=== PATIENT | female | born 1955 | race Caucasian/White ===

== ENCOUNTER 2019-11-23 14:28 | Emergency (ER) | payer OTHER ==
[2019-11-23 15:57] LABS: Absolute Lymphocytes (CBC) 1.6 K/uL (0.7-4.9); Hematocrit 40.3 % (36.0-45.0); MPV 8.3 fL (7.6-11.3); RBC Red Blood Cell Count 4.14 M/uL (3.86-4.86)
[2019-11-23 16:13] LABS: Protime INR 0.95
[2019-11-23 16:19] LABS: ALT/SGPT 32 U/L (12-78); AST/SGOT 24 U/L (15-37); Albumin 4.2 g/dL (3.4-5.0); Alkaline Phosphatase 131 U/L (45-117); BUN Blood Urea Nitrogen 12 mg/dL (7-18); Bicarbonate 28 mmol/L (21-32); Bilirubin Direct < 0.1 mg/dL (0-0.2); Bilirubin Total 0.4 mg/dL (0.2-1.0); Glucose Level 102 mg/dL (74-106); Magnesium 2.5 mg/dL (1.8-2.4); NT PRO-BNP 106 pg/mL (<125); Potassium 3.6 mmol/L (3.5-5.1); Protein, Total 7.8 g/dL (6.4-8.2); Sodium Level 142 mmol/L (136-145); Troponin (Emerg Dept Use Only) < 0.02 ng/mL (0.0-0.045)
--- NOTE | 2019-11-23 16:47 | RAD REPORT ---
EXAM DESCRIPTION: RAD - Chest Single View - 11/23/2019 4:40 pm CLINICAL HISTORY: CHEST PAIN Chest pain. COMPARISON: CHEST SINGLE VIEW dated 06/13/2014; CHEST PA AND LAT 2 VIEW dated 12/10/2011 FINDINGS: Portable technique limits examination quality. The lungs are grossly clear. The heart is normal in size. No displaced fractures. IMPRESSION: No acute intrathoracic process suspected.
--- NOTE | 2019-11-23 16:53 | ER ---
Nurse's Notes [facility] Name: Lauren Thompson Age: 64 yrs Sex: Female : 1955 Arrival Date: 11/23/2019 Time: 14:34 Bed 15 Private MD: Diagnosis: Chest pain, unspecified;Viral infection, unspecified Presentation: 11/22 14:37 Chief complaint: Patient states: Chest pressure since Friday. + SOB with talking a lot. ll1 + sore throat. wants covid test and heart work-up. Diarrhea int. Sent by televisit doctor for eval. Coronavirus screen: Surgical mask placed on patient. Patient moved to private room, placed in contact and droplet isolation with eye protection until further assessment. Patient reports a cough. Patient denies shortness of breath or difficulty breathing. Patient reports a measured and/or subjective temperature greater than 100.4F. Patient denies travel on a cruise ship or to a country the [facility] currently lists as an affected area. Patient reports contact with known and/or suspected case of COVID-19. 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 Ebola Screen: Patient denies travel to an Ebola-affected area in the 21 days before illness onset. Initial Sepsis Screen: Does the patient meet any 2 criteria? No. Patient's initial sepsis screen is negative. Risk Assessment: Do you want to hurt yourself or someone else? Patient reports no desire to harm self or others. Onset of symptoms was November 18, 2019. 14:37 Acuity: MALIK 3 ll1 14:37 Method Of Arrival: Ambulatory ll1 15:15 Initial Sepsis Screen: Does the patient have a suspected source of infection? No. vc Patient's initial sepsis screen is negative. Historical: - Allergies: 14:43 Sulfa (Sulfonamide Antibiotics); ll1 - PMHx: 14:43 Diverticulitis; Irregular heart rate; Ovarian cyst; Hypertension; ll1 - PSHx: 14:43 sigmoidectomy; Hysterectomy; bladder lift; ll1 - Immunization history:: Flu vaccine is up to date. - Social history:: Smoking status: Patient denies any tobacco usage or history of. Patient uses alcohol, only on a social basis. Patient/guardian denies using street drugs, tobacco products. Screenin:15 Abuse screen: Denies threats or abuse. Nutritional screening: No deficits noted. vc Tuberculosis screening: No symptoms or risk factors identified. Fall Risk None identified. Assessment: 15:15 General: Appears in no apparent distress. comfortable, Behavior is calm, cooperative, vc appropriate for age. Pain: Complains of pain in right mastoid area, left mastoid area, anterior aspect of left upper chest and mid-sternal area Pain does not radiate. Quality of pain is described as "discomfort in chest" Pain began gradually. Neuro: Level of Consciousness is awake, alert, obeys commands, Oriented to person, place, time, situation, Appropriate for age. Cardiovascular: Reports nausea, vomiting, "chest discomfort" Patient's skin is warm and dry. Rhythm is irregular. Respiratory: Reports shortness of breath on exertion cough that is dry, Respiratory effort is even, unlabored, Respiratory pattern is regular, symmetrical. GI: Reports nausea, vomiting. : No signs and/or symptoms were reported regarding the genitourinary system. EENT: Reports "sore throat". Derm: Skin is intact, is healthy with good turgor, Skin temperature is warm. Musculoskeletal: Circulation, motion, and sensation intact. Range of motion: intact in all extremities. 16:15 Reassessment: Patient appears in no apparent distress at this time. Patient and/or vc family updated on plan of care and expected duration. Pain level reassessed. Patient is alert, oriented x 3, equal unlabored respirations, skin warm/dry/pink. 17:15 Reassessment: Patient appears in no apparent distress at this time. Patient and/or vc family updated on plan of care and expected duration. Pain level reassessed. Patient is alert, oriented x 3, equal unlabored respirations, skin warm/dry/pink. Patient states symptoms have not improved. Vital Signs: 14:37 BP 182 / 87; Pulse 85; Resp 18; Temp 98.6; Pulse Ox 98% ; Pain 5/10; ll1 16:00 BP 149 / 79; Pulse 75; Resp 12; Pulse Ox 97% on R/A; vc 17:00 BP 139 / 79; Pulse 75; Resp 20; Pulse Ox 100% on R/A; vc ED Course: 14:34 Patient arrived in ED. as 14:41 Triage completed. ll1 14:43 Arm band placed on Patient placed in an exam room, on a stretcher. ll1 14:44 Calcote, Wilma, RN is Primary Nurse. vc 15:05 Gutierrez Swanson PA is PHCP. jr8 15:05 Martinez Guo MD is Attending Physician. jr8 15:15 Patient has correct armband on for positive identification. Placed in gown. Bed in low vc position. Call light in reach. cardiac monitor technician on. Pulse ox on. NIBP on. 15:15 Inserted saline lock: 20 gauge in right antecubital area, using aseptic technique. vc Blood collected. Patient maintains SpO2 saturation greater than 95% on room air. 16:41 XRAY Chest (1 view) In Process Unspecified. EDMS 17:27 No provider procedures requiring assistance completed. IV discontinued, intact, vc bleeding controlled, No redness/swelling at site. Pressure dressing applied. Administered Medications: No medications were administered Outcome: 16:53 Discharge ordered by . jr8 17:27 Discharged to home ambulatory. vc 17:27 Condition: good 17:27 Discharge instructions given to patient, Instructed on discharge instructions, follow up and referral plans. Demonstrated understanding of instructions, follow-up care. 17:28 Patient left the ED. vc Addendum: 11/26/2019 11:54 Addendum: Other pt notified of negative COVID-19 swab results. Pt advised to remain in d m5 isolation until symptom free for 3 days without medication and to return to the ED for worsening symptoms. Signatures: Dispatcher [employer] EDAK Bryanna Correa RN RN Danica Khan Josh, PA PA jr8 Wilma Hutchinson RN RN vc Lewis, Lynsay, RN RN ll1
--- NOTE | 2019-11-23 16:54 | EDPHYS ---
Physician Documentation [facility] Name: Lauren Thompson Age: 64 yrs Sex: Female : 1955 Arrival Date: 11/23/2019 Time: 14:34 Bed 15 Private MD: ED Physician Martinez Guo HPI: 11/22 15:56 This 64 yrs old Female presents to ER via Ambulatory with complaints of Chest jr8 Pressure. 15:56 The patient or guardian reports chest pain that is located primarily in the substernal jr8 area. Onset: gradually, 5 day(s) ago. The pain radiates to Associated signs and symptoms: The patient has no apparent associated signs or symptoms. The chest pain is described as dull. Duration: The patient or guardian reports multiple episodes, that are intermittent, that wax and wane. Modifying factors: The symptoms are alleviated by nothing. the symptoms are aggravated by exertion. Severity of pain: At its worst the pain was moderate in the emergency department the pain is unchanged. The patient has not experienced similar symptoms in the past. The patient has been recently seen by a physician:. Patient stated that she has had chest pressure on/off for several days even at rest. Over the past couple of days not having body aches, chills, cough consistent with COVID symptoms. Had telemedicine health visit with PCP who instructed her to come to ED for further evaluation . Historical: - Allergies: 14:43 Sulfa (Sulfonamide Antibiotics); ll1 - PMHx: 14:43 Diverticulitis; Irregular heart rate; Ovarian cyst; Hypertension; ll1 - PSHx: 14:43 sigmoidectomy; Hysterectomy; bladder lift; ll1 - Immunization history:: Flu vaccine is up to date. - Social history:: Smoking status: Patient denies any tobacco usage or history of. Patient uses alcohol, only on a social basis. Patient/guardian denies using street drugs, tobacco products. ROS: 15:56 Eyes: Negative for injury, pain, redness, and discharge, ENT: Negative for injury, jr8 pain, and discharge, Neck: Negative for injury, pain, and swelling, Back: Negative for injury and pain, MS/Extremity: Negative for injury and deformity, Skin: Negative for injury, rash, and discoloration, Neuro: Negative for headache, weakness, numbness, tingling, and seizure. 15:56 Constitutional: Positive for body aches, chills, fever. 15:56 Cardiovascular: Positive for chest pain, Negative for edema, orthopnea, palpitations, paroxysmal nocturnal dyspnea. 15:56 Respiratory: Positive for cough. 15:56 Abdomen/GI: Positive for nausea, diarrhea, Negative for abdominal pain, constipation, abdominal cramps, abdominal distension. Exam: 15:56 Eyes: Pupils equal round and reactive to light, extra-ocular motions intact. Lids and jr8 lashes normal. Conjunctiva and sclera are non-icteric and not injected. Cornea within normal limits. Periorbital areas with no swelling, redness, or edema. ENT: Nares patent. No nasal discharge, no septal abnormalities noted. Tympanic membranes are normal and external auditory canals are clear. Oropharynx with no redness, swelling, or masses, exudates, or evidence of obstruction, uvula midline. Mucous membranes moist. Neck: Trachea midline, no thyromegaly or masses palpated, and no cervical lymphadenopathy. Supple, full range of motion without nuchal rigidity, or vertebral point tenderness. No Meningismus. Cardiovascular: Regular rate and rhythm with a normal S1 and S2. No gallops, murmurs, or rubs. Normal PMI, no JVD. No pulse deficits. Respiratory: Lungs have equal breath sounds bilaterally, clear to auscultation and percussion. No rales, rhonchi or wheezes noted. No increased work of breathing, no retractions or nasal flaring. Abdomen/GI: Soft, non-tender, with normal bowel sounds. No distension or tympany. No guarding or rebound. No evidence of tenderness throughout. Back: No spinal tenderness. No costovertebral tenderness. Full range of motion. Skin: Warm, dry with normal turgor. Normal color with no rashes, no lesions, and no evidence of cellulitis. MS/ Extremity: Pulses equal, no cyanosis. Neurovascular intact. Full, normal range of motion. Neuro: Awake and alert, GCS 15, oriented to person, place, time, and situation. Cranial nerves II-XII grossly intact. Motor strength 5/5 in all extremities. Sensory grossly intact. Cerebellar exam normal. Normal gait. Vital Signs: 14:37 BP 182 / 87; Pulse 85; Resp 18; Temp 98.6; Pulse Ox 98% ; Pain 5/10; ll1 16:00 BP 149 / 79; Pulse 75; Resp 12; Pulse Ox 97% on R/A; vc 17:00 BP 139 / 79; Pulse 75; Resp 20; Pulse Ox 100% on R/A; vc MDM: 15:05 Patient medically screened. 8 16:50 Differential diagnosis: acute myocardial infarction, acute pericarditis, chest wall jr8 pain, cholecystitis, Cholelithiasis costochondritis, esophagitis, gastritis, gastroesophageal reflux disease (GERD), myocarditis, pancreatitis, peptic ulcer disease, pneumonia, pulmonary embolus, stable angina, thoracic aortic disection, unstable angina. Data reviewed: vital signs, nurses notes, lab test result(s), EKG, radiologic studies, plain films. Data interpreted: Pulse oximetry: on room air is 97 %. Interpretation: normal. Counseling: I had a detailed discussion with the patient and/or guardian regarding: the historical points, exam findings, and any diagnostic results supporting the discharge/admit diagnosis, lab results, radiology results, the need for outpatient follow up, a family practitioner, to return to the emergency department if symptoms worsen or persist or if there are any questions or concerns that arise at home. 17:08 ED course: Patient has had on/off chest pain for 5 days. Cardiac enzyme normal. No jr8 acute findings on rest of labs or images. 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 Recommended this and to wait for COVID results in meantime. If worse to immediately come back for further evaluation . 11/22 15:15 Order name: Basic Metabolic Panel; Complete Time: 16:11/22 15:15 Order name: CBC with Diff; Complete Time: 16:11/22 15:15 Order name: LFT's; Complete Time: 16:11/22 15:15 Order name: Magnesium; Complete Time: 16:11/22 15:15 Order name: NT PRO-BNP; Complete Time: 16:11/22 15:15 Order name: PT-INR; Complete Time: 16:11/22 15:15 Order name: Troponin (emerg Dept Use Only); Complete Time: 16:11/22 15:15 Order name: XRAY Chest (1 view); Complete Time: 16:50 30 15:15 Order name: EKG; Complete Time: 15:16 8 11/22 15:15 Order name: Cardiac monitoring; Complete Time: 15:54 8 11/22 15:15 Order name: EKG - Nurse/Tech; Complete Time: 15:54 8 11/22 15:15 Order name: IV Saline Lock; Complete Time: 15:54 8 11/22 15:15 Order name: Labs collected and sent; Complete Time: 15:54 8 11/22 15:15 Order name: COVID-19 11/22 15:15 Order name: O2 Per Protocol; Complete Time: 15:54 8 11/22 15:15 Order name: O2 Sat Monitoring; Complete Time: :54 Administered Medications: No medications were administered Disposition: 11/23 06:07 Co-signature as Attending Physician, Martinez Guo MD I agree with the assessment and kdr plan of care. Disposition: 11/23/19 16:53 Discharged to Home. Impression: Chest pain, unspecified, Viral infection, unspecified. - Condition is Stable. - Discharge Instructions: Nonspecific Chest Pain, Viral Respiratory Infection, COVID-19. - Medication Reconciliation Form, Thank You Letter, Antibiotic Education, Prescription Opioid Use form. - Follow up: Private Physician; When: 2 - 3 days; Reason: Recheck today's complaints, Continuance of care, Re-evaluation by your physician. - Problem is new. - Symptoms have improved. Signatures: Dispatcher [employer] EDHI Martinez Guo MD MD kdr Roszak, Josh, PA PA jr8 Wilma Hutchinson RN RN Aby Shrestha RN RN ll1 Corrections: (The following items were deleted from the chart) 11/22 17:28 16:53 11/23/2019 16:53 Discharged to Home. Impression: Chest pain, unspecified; Viral vc infection, unspecified. Condition is Stable. Forms are Medication Reconciliation Form, Thank You Letter, Antibiotic Education, Prescription Opioid Use. Follow up: Private Physician; When: 2 - 3 days; Reason: Recheck today's complaints, Continuance of care, Re-evaluation by your physician. Problem is new. Symptoms have improved. jr8
[2019-11-23 17:55] VITALS: TEMP 98.6
--- OUTSIDE RECORDS SUMMARY | 2019-11-23 17:56 | XMS REPORT | Clinical Summary ---
:1955 Author Organization [facility] Address [address] [place] [address] Care Team Providers Name Role Phone Jodi Rendon DO Primary Care Provider [phone] Allergies Active Allergy Reactions Severity Noted Date Comments Doxycycline Hives 11/04/2018 Sulfa (Sulfonamide Antibiotics) Hives 9 Medications Medication Sig Dispensed Refills Start Date End Date Status buPROPion XL Take 150 mg by 0 Ac tive (WELLBUTRIN XL) mouth 2 (two) 150 MG 24 hr times a day. tablet ondansetron Take 4 mg by 0 Activ e (ZOFRAN) 4 MG mouth every 8 tablet (eight) hours as needed for nausea or vomiting. atenolol Take 25 mg by 0 Active (TENORMIN) 25 MG mouth daily. tablet diclofenac Apply 0 Active (VOLTAREN) 1 % topically as gel needed. promethazine Take 25 mg by 0 Act ary (PHENERGAN) 25 MG mouth every 6 tablet (six) hours as needed for nausea or vomiting. fenofibrate Take 160 mg by 0 Dis continued (LOFIBRA) 160 MG mouth daily. 9 (Stop Taking at tablet Discharge) estradiol Follow office 42.5 g 1 11/04/2018 Disco ntinued (ESTRACE) 0.01 % instruction. 9 (Discontinued by (0.1 mg/gram) Insert one anoth er vaginal finger tip clinician ) creamIndications: unit into Vaginal atrophy vagina nightly x 2wks; after two weeks use 3x weekly at night amoxicillin-pot Take 1 tablet 0 Discontinued clavulanate by mouth 2 9 (AUGMENTIN) (two) times a 875-125 mg per day. tablet diazePAM (VALIUM) Take 1 tablet 10 tablet 0 02/23/2019 5 MG (5 mg total) 9 tabletIndications by mouth : Muscle spasm nightly for 10 days. diazePAM (VALIUM) Insert one 30 tablet 0 04/15/2019 10 MG tablet into 9 tabletIndications vagina at : Myalgia of night pelvic floor Hospital, Clinic, or Other Ordered Dose Route Frequency Start Date End Date Status Facility Administered Medication triamcinolone acetonide 40 mg IM once 04/15/201904/15 Ended (KENALOG-40) injection 40 mgIndications: Myalgia of pelvic floor bupivacaine (MARCAINE) 0.5 10 mL inj once 04/15/2019 Ended % (5 mg/mL) injection 10 mLIndications: Myalgia of pelvic floor Active Problems Patient Care Coordination Note Dr. Rendon FAX: [phone] Problem Noted Date Uterine prolapse 02/02/2019 Diverticulitis 02/01/2019 Encounters Date Type Specialty Care Team Description 08/16/2019 Travel 08/16/2019 Transcribe Orders Access [place], Unspecifie d abdominal MD Loren pain (Primary D x) 04/15/2019 Office Visit Urogynecology Khai, Myalgia of pel lea floor (Primary Dx); Altagracia Zavaleta Incomplete nia dder emptying; Post-operative state 04/14/2019 Telephone Urogynecology Roger Loyd LVN 04/08/2019 Telephone Urogynecology Mike, Incomplete nia dder emptying (Primary Dx); DEAN Zamarripa Post-operative state 03/10/2019 Office Visit Urogynecologharrison Aranda, Post-operative state Altagracia Zavaleta (Primary Dx) 03/04/2019 Telephone Urogynecology Jojo Rose 03/02/2019 Telephone UrogynecologAltagracia Bullock MD 02/23/2019 Office Visit Urogynecologharrison Aranda, Muscle spasm ( Primary Altagracia Zavaleta, Dx) 02/21/2019 Telephone Urogynecologharrison Aranda, Postoperative state Altagracia Zavaleta (Primary Dx) 02/19/2019 Telephone UrogynecologAltagracia Bullock MD 2019 Hospital Radiology Samantha, Diverticulitis, colon Encounter MD Loren 02/16/2019 Transcribe Orders Access Samantha, Diverticul itis, colon MD Loren (Primary Dx) 02/09/2019 Telephone Urogynecology Karina Lott MD 02/05/2019 Orders Only Urogynecology Karina Lott Incomplete [place] rovaginal MD Delvin prolapse (Prima ry Dx) 02/01/2019 Anesthesia Event General Surgery Patrick Silvestre MD Nguyen, Jacob 02/01/2019 Surgery General Surgery Samantha, ROBOTIC ASSI MELL Pimentel MD ANTERIOR RESECT ION, TAP BLOCK, PROCTOSIGMOIDOS COPY 02/01/2019 [facility] General Surgery Samantha, Diverticulit is; - Encounter MD Loren Mixed incontine nce urge and stress; 02/05/2019 Cystocele with rectocele; Incomplete uter ovaginal prolapse 01/18/2019 Pre-Admit Testing Pre-Admission Shira Singhop exa mination Appointment Testing MD Loren (Primary Dx) 12/31/2018 Telephone Urogynecology Altagracia Aranda MD 12/17/2018 Telephone Obstetrics and Khai, Gynecology Altagracia Zavaleta MD 12/15/2018 Telephone UrogynecologAltagracia Bullock MD 12/10/2018 Telephone Urogynecology Altagracia Aranda MD 12/09/2018 Pre-Admit Testing Pre-Admission Altaf Aranda rowena ting (Primary Appointment Testing Adriana Raines) 12/09/2018 Office Visit Urogynecology Khai, Incomplete [place] pass rovaginal prolapse (Primary Dx); Altagracia Zavaleta, Genuine stress incontinence, female; Incomplete blad qing emptying; Diverticulitis of sigmoid colon 12/09/2018 Telephone Urogynecology Altagracia Aranda MD after 11/22/2018 Family History Medical History Relation Name Comments Heart disease Father Heart disease Mother Relation Name Status Comments Father Mother Alive Social History Tobacco Use Types Packs/Day Years Used Date Former Smoker Quit: 2007 Smokeless Tobacco: Never Used Alcohol Use Drinks/Week oz/Week Comments Yes 3 Glasses of wine 3.0 Sex Assigned at Date Recorded Not on file Job Start Date Occupation Industry Not on file Not on file Not on file Travel History Travel Start Travel End No recent travel history available. 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[employer] Pulse 72 04/15/2019 8:50 AM [employer] Temperature 36.6 C (97.8 F) 02/05/2019 3:22 PM CDT Respiratory Rate 17 02/05/2019 3:22 PM CDT Oxygen Saturation 95% 02/05/2019 3:22 PM CDT Inhaled Oxygen Concentration - - Weight 73.9 kg (163 lb) 04/15/2019 8:50 AM [employer] Height 162.6 cm (5' 4") 04/15/2019 8:50 AM [employer] Body Mass Index 27.98 04/15/2019 8:50 AM [employer] Plan of Treatment Health Maintenance Due Date Last Done Comments BREAST CANCER SCREENING 2003 COLONOSCOPY SCREENING 2003 SHINGLES VACCINES (#2) 05/03/2013 03/03/2013 65+ PNEUMOCOCCAL VACCINE (2 of 2 - 2018 03/11/2019 PPSV23) INFLUENZA VACCINE 12/25/2019 03/11/2019, 01/03/2019, 04/03/2018, Additional history exists Implants Implanted Type Area Engagement Engineer Device Shelf Model / Identifier Expiration Serial / Date Lot Eea Circular Stapler With Tri- Staple Technolgy Stapling - N/A: [employer] 06/25/2023 [id number] / Implanted: Qty: 1 on 02/01/2019 by Loren Singh M D at [facility] Endo cutters, N/A DEVICES / staplers, (FORMERLY [id number] reloads [facility]) Kit Selnt Fibrin [facility] Surgy 5ml Evicel - [id number] Surgic al N/A: ETHICON - 09/22/2020 [id number] / Implanted: 02/01/2019 at [facility] (Quantity not on file) Implants; N/A / Expanders; [id number] Extenders; Surgical Wires System Sling Mdurethrl Trnsvagnl Mesh Asmbly Advantage Fit - [id number] Urological N/A: BSC 12/07/2021 [id number] / Implanted: Qty: 1 on 02/01/2019 by Loren Singh M D at [facility] Implants or N/A UROLOGY/GYNECOL / Sets [id number] Procedures Procedure Name Priority Date/Time Associated Diagnosis Comme nts POC URINALYSIS DIPSTICK Routine 04/15/2019 10:12 Incomplete bl adder Results for this AM [employer]ATOR 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 MEASURE POST VOID Routine 04/15/2019 Incomplete bladder Resu lts for this RESIDUAL emptying procedure are i n the results section. URINE CULTURE Routine 04/08/2019 1:55 Incomplete bladder Resu lts for this PM [employer] OPER[employer] emptying procedure are in Post-operative state the res ults section. POC URINALYSIS DIPSTICK Routine 03/10/2019 3:16 Post-operativ e state Results for this PM CDT procedure are i n the results section. MEASURE POST VOID Routine 03/10/2019 Post-operative state Re sults for this RESIDUAL procedure are i n the results section. CREATININE LEVEL Routine 02/22/2019 3:29 Postoperative state Results for this PM CDT procedure are i n the results section. CT ABDOMEN PELVIS WO Routine 2019 5:05 Diverticulitis, Results for this CONTRAST PM CDT colon procedure are i n the results section. BASIC METABOLIC PANEL Routine 02/11/2019 10:29 Incomplete Re sults for this AM CDT uterovaginal procedure are i n prolapse the results section. ESTIMATED GFR STAT 02/05/2019 11:49 Results fo r this AM CDT procedure are i n the results section. CREATININE LEVEL STAT 02/05/2019 11:49 Results for this AM CDT procedure are i n the results section. CBC HEMOGRAM Routine 02/05/2019 4:35 Results for this AM CDT procedure are i n the results section. ESTIMATED GFR Routine 02/05/2019 4:00 Results fo r this AM CDT procedure are i n the results section. BASIC METABOLIC PANEL Routine 02/05/2019 4:00 Re sults for this AM CDT procedure are i n the results section. ESTIMATED GFR STAT 02/04/2019 2:03 Results fo r this PM CDT procedure are i n the results section. BASIC METABOLIC PANEL STAT 02/04/2019 2:03 Re sults for this PM CDT procedure are i n the results section. CBC HEMOGRAM Routine 02/04/2019 4:23 Results for this AM CDT procedure are i n the results section. ESTIMATED GFR Routine 02/04/2019 4:00 Results fo r this AM CDT procedure are i n the results section. BASIC METABOLIC PANEL Routine 02/04/2019 4:00 Re sults for this AM CDT procedure are i n the results section. ESTIMATED GFR Routine 02/03/2019 1:00 Results fo r this PM CDT procedure are i n the results section. BASIC METABOLIC PANEL Routine 02/03/2019 1:00 Re sults for this PM CDT procedure are i n the results section. US RENAL STAT 02/03/2019 8:45 Results for this AM CDT procedure are i n the results section. ESTIMATED GFR Routine 02/03/2019 4:00 Results fo r this AM CDT procedure are i n the results section. BASIC METABOLIC PANEL Routine 02/03/2019 4:00 Re sults for this AM CDT procedure are i n the results section. HC COMPLETE BLD COUNT Routine 02/03/2019 3:54 Re sults for this W/AUTO DIFF AM CDT procedure are i n the results section. POC GLUCOSE Routine 02/02/2019 4:54 Results for this PM CDT procedure are i n the results section. ESTIMATED GFR Routine 02/02/2019 5:26 Results fo r this AM CDT procedure are i n the results section. PHOSPHORUS LEVEL Routine 02/02/2019 5:26 Results for this AM CDT procedure are i n the results section. MAGNESIUM LEVEL Routine 02/02/2019 5:26 Results for this AM CDT procedure are i n the results section. BASIC METABOLIC PANEL Routine 02/02/2019 5:26 Re sults for this AM CDT procedure are i n the results section. HC COMPLETE BLD COUNT Routine 02/02/2019 5:26 Re sults for this W/AUTO DIFF AM CDT procedure are i n the results section. SURGICAL PATHOLOGY Routine 02/01/2019 3:37 Resul ts for this REQUEST PM CDT procedure are i n the results section. TN AN ELECTIVE Routine 02/01/2019 8:59 Results f or this ENDOTRACHEAL AIRWAY AM CDT procedur e are in the results section. COLPORRHAPHY, COMBINED 02/01/2019 7:38 Divertic ulitis ANTEROPOSTERIOR AM CDT Mixed incontinence urge and stress Cystocele with rectocele Incomplete uterovaginal prolapse Case Notes CRIS LATIF, DR SAMANTHA MARIO FIRST, EST 4 HRS, DR ARANDA WORKING SECOND, EST 3 HRS., STAFF/EQUIP COMING FROM DN 6 OR, [place] [address] @ 1510 01/27 MED Special Needs CRIS LATIF, DR SAMANTHA MARIO FIRST, EST 4 HRS, DR ARANDA WORKING SECOND, EST 4 HRS., STAFF/EQUIP COMING FROM DN 6 OR RESECTION, COLON, 02/01/2019 7:38 AM Diverticul itis LAPAROSCOPIC, CDT Mixed incontinence urge and ROBOT-ASSISTED stress Cystocele with r ectocele Incomplete uterovaginal prol apse Case Notes CRIS LATIF, DR SAMANTHA MARIO FIRST, EST 4 HRS, DR ARANDA WORKING SECOND, EST 3 HRS., STAFF/EQUIP COMING FROM DN 6 OR, [place] [address] @ 1510 01/27 MED Special Needs CRIS LATIF, DR SAMANTHA MARIO FIRST, EST 4 HRS, DR ARANDA WORKING SECOND, EST 4 HRS., STAFF/EQUIP COMING FROM DN 6 OR GRAM STAIN Routine 01/18/2019 1:37 Results for this PM CDT procedure are i n the results section. URINE CULTURE Routine 01/18/2019 1:37 Results fo r this PM CDT procedure are i n the results section. URINALYSIS SCREEN AND Routine 01/18/2019 10:34 Preop examinati on Results for this MICROSCOPY, WITH REFLEX AM CDT proc edure are in TO CULTURE the results section. ESTIMATED GFR Routine 01/18/2019 10:33 Results fo r this AM CDT procedure are i n the results section. COMPREHENSIVE METABOLIC Routine 01/18/2019 10:33 Preop examina tion Results for this PANEL AM CDT procedure are i n the results section. PROTHROMBIN TIME WITH Routine 01/18/2019 10:33 Preop examinati on Results for this INR AM CDT procedure are i n the results section. PARTIAL THROMBOPLASTIN Routine 01/18/2019 10:33 Preop examinat ion Results for this TIME (PTT) AM CDT procedure are i n the results section. TYPE AND SCREEN Routine 01/18/2019 10:33 Preop examination Res ults for this AM CDT procedure are i n the results section. CBC HEMOGRAM Routine 01/18/2019 10:33 Preop examination Result s for this AM CDT procedure are i n the results section. ECG PRE/POST OP Routine 12/09/2018 2:57 Preop testing Results for this PM CDT procedure are i n the results section. TYPE AND SCREEN Routine 12/09/2018 2:42 Preop testing Results for this PM CDT procedure are i n the results section. POC URINALYSIS DIPSTICK Routine 12/09/2018 11:37 Genuine stres s Results for this AM CDT incontinence, procedure are in female the results Incomplete bladder section. 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 Pathologist Sig nature Color urine, POC Yellow Clarity urine, POC Clear Glucose urine, POC Negative Negative Bilirubin urine, POC Negative Negative Ketones urine, POC Negative Negative Specific gravity urine, 1.020 1.005 - 1.030 POC Blood urine, POC Negative Negative pH urine, POC 6.0 5.0, 5.5, 6.0, 6.5, 7.0, 7.5, 8.0, 8.5 Protein urine, POC Negative Negative Urobilinogen urine, POC <2.0 <2.0 Nitrite urine, POC Negative Negative Leukocyte esterase Negative Negative urine, POC Specimen Urine Measure post void residual (04/15/2019)Only the most recent of2 resultswithin the time period is included. Pathologist Sig nature Total volume, urine 0ml Specimen Urine culture (04/08/2019 1:55 PM EVAPORATOR OPERATOR MOLASSES)Only the most recent of2 resultswithin the time period is included. Pathologist Sig nature Urine culture No growth [facility] Specimen Urine - Urine, clean catch Narrative Performed At Performed at: [facility] - [facility] [id number] [address] Lathe Tender: Hardy Knowles MD, Phone: [phone] Performing Organization Address City/State/Zipcode Phone Number [facility] Creatinine level (02/22/2019 3:29 PM CDT)Only the most recent of2 resultswithin the time period is included. Pathologist Sig nature Creatinine 0.97 0.57 - 1.00 mg/dL [facility] EGFR Non-Afr. Georgian 61 >59 mL/min/1.73 [facility] EGFR 70 >59 mL/min/1.73 [facility] Specimen Blood Narrative Performed At Performed at: [facility] [address] [place], [place] [address] [address] Lathe Tender: Hardy Knowles MD, Phone: [phone] Performing Organization Address City/State/Zipcode Phone Number [facility] CT Abdomen Pelvis Wo Contrast (2019 5:05 PM CDT) Specimen Narrative Performed At EXAMINATION: CT ABDOMEN PELVIS WO CONT RAST [facility] CLINICAL HISTORY: K57.32 Diverticulitis of large int estine without perforation or abscess without bleeding, K57.32 DIVERTICULITIS TECHNIQUE: Multiple axial images of the abdomen and pe lvis were obtained without intravenous administration of iodinated contra st. Sagittal and coronal computerized reformatted images were also obta ined. The lack of intravenous contrast reduces the sensitivity of detecting solid organ disease.Automatic exposure control or iterative reconstruction techniques u sed to reduce dose. COMPARISON: None. Impression: 1.Without IV contrast evaluation of solid organs of up per abdomen is limited. There is evidence for left-sided hydronephros is and hydroureter although the very distal left ureter is not well seen. No clear distal stones are seen. No right-sided stones are seen. 2.Extensive diverticulosis throughout the colon. Patie nt is status post prior sigmoid resection. No acute diverticulitis is no kwaku. No small bowel obstruction. Status post hysterectomy. No fluid collections or free air. Osseous structures are intact. Summary: 1.Left-sided hydronephrosis and hydroureter, etiology is unclear. Obstruction at the left distal ureter cannot be exclud ed. Urology consultation recommended. 2.Colonic diverticulosis, without divert iculitis. [id number] Procedure Note Hm Interface, Radiology Results Incoming - 2019 5:31 PM CDT EXAMINATION: CT ABDOMEN PELVIS WO CONTRAST CLINICAL HISTORY: K57.32 Diverticulitis of large intestine without perforation or abscess without bleeding, K57.32 DIVERTICULITIS TECHNIQUE: Multiple axial images of the abdomen and pelvis were obtained without intravenous administration of iodinated contrast. Sagittal and coronal computerized reformatted images were also obtained. The lack of intravenous contrast reduces the sensitivity of detecting solid organ dis ease.Automatic exposure control or iterative reconstruction techniques used to reduce dose. COMPARISON: None. Impression: 1.Without IV contrast evaluation of brandee d organs of upper abdomen is limited. There is evidence for left-sided hydronephrosis and hydroureter although the very distal left ureter is not well seen. No clear distal stones are seen. No right-sided stones are seen. 2.Extensive diverticulosis throughout th e colon. Patient is status post prior sigmoid resection. No acute diverticulitis is noted. No small bowel obstruction. Status post hysterectomy. No fluid collections or free air. Osseous structures are intact. Summary: 1.Left-sided hydronephrosis and hydroure ter, etiology is unclear. Obstruction at the left distal ureter cannot be excluded. Urology consultation recommended. 2.Colonic diverticulosis, without divert iculitis. [id number] Performing Organization Address [facility] Phone Number [facility] [address] [place] [address] Basic metabolic panel (02/11/2019 10:29 AM CDT)Only the most recent of7 results within the time period is included. Pathologist Sig nature Glucose 152 (H) 65 - 99 mg/dL [facility] BUN 17 8 - 27 mg/dL [facility] Creatinine 1.22 (H) 0.57 - 1.00 mg/dL [facility] EGFR Non-Afr. Georgian 47 (L) >59 mL/min/1.73 [facility] EGFR 54 (L) >59 mL/min/1.73 [facility] BUN/creatinine ratio 14 12 - 28 [facility] Sodium 140 134 - 144 mmol/L [facility] Potassium 4.4 3.5 - 5.2 mmol/L [facility] Chloride 98 96 - 106 mmol/L [facility] CO2 25 20 - 29 mmol/L [facility] Calcium 9.4 8.7 - 10.3 mg/dL [facility] Specimen Blood Narrative Performed At Performed at: [facility] - [facility] [address] [place], [place] [address] [address] Lathe Tender: Hardy Knowles MD, Phone: [phone] Performing Organization Address [facility] Phone Number [facility] Estimated GFR (02/05/2019 11:49 AM CDT)Only the most recent of8 resultswithin the time period is included. Estimated GFR 46 (A) mL/min/1.73 [facility] Comment: m2 HOSPITAL Catergory Units Interpretation G1 >=90 Normal or high G2 60-89 Mildly decreased G3a 45-59 Mildly to moderately decreas ed G3b 30-44 Moderately to severely decre ased G4 15-29 Severely decreased G5 <15 Kidney failure The eGFR was calculated using the Chronic Kidney Disea se Epidemiology Collaboration (CKD-EPI) equation. Interpretation is based on recommendations of the National Kidney Foundation-Kidney Disease Outcomes Edy lity Initiative (NKF-KDOQI) published in 2014. Specimen Plasma specimen Performing Organization Address City/State/Zipcode Phone Number [facility] DEPARTMENT OF PATHOLOGY AND [address] [place] [address] [address] CBC hemogram (02/05/2019 4:35 AM CDT)Only the most recent of3 resultswithin the time period is included. Pathologist Sig nature WBC 5.69 4.50 - 11.00 k/uL [facility] RBC 2.61 (L) 4.20 - 5.50 m/uL [facility] HGB 8.5 (L) 12.0 - 16.0 g/dL [facility] HCT 26.3 (L) 37.0 - 47.0 % [facility] MCV 100.8 (H) 82.0 - 100.[address] [facility] MCH 32.6 27.0 - 34.[address] [facility] MCHC 32.3 31.0 - 37.0 g/dL [facility] RDW - SD 46.1 37.0 - 55.[address] [facility] MPV 10.4 8.8 - 13.[address] [facility] Platelet count 181 150 - 400 k/uL [facility] Nucleated RBC 0.00 /[address] [facility] Specimen Blood Performing Organization Address City/[facility]/Zipcode Phone Number [facility] DEPARTMENT OF PATHOLOGY AND [address] [place] [address] [address] [address] [place] Renal (02/03/2019 8:45 AM CDT) Specimen Narrative Performed At [facility]AMINATION: [facility] CLINICAL [facility]: Renal failure acute (kidney inju ry), S p uterosacral ligament suspension now with new onset f lank pain and MATTHEW. Please preform bilateral renal us to evaluate for hydr onephrosis given recent surgery and MATTHEW. COMPARISON: None. TECHNIQUE: Ultrasound evaluation of th e kidneys and bladder. FINDINGS: The right kidney measures 10.7 x 5.2 x 6.6 cm. The l eft kidney measures 11.8 x 6.2 x 4.9 cm. Renal ted ical echogenicity is normal. No focal abnormality, calculi, or hydron ephrosis. The urinary bladder is not identified an d may be collapsed. IMPRESSION: Normal renal ultrasound. [facility]-[id number] Procedure Note Interface, Radiology Results Incoming - 02/03/2019 9:05 AM CDT EXAMINATION: US RENAL CLINICAL HISTORY: Renal failure acute (kidney injury), S p uterosacral ligament suspension now with new onset flank pain and MATTHEW. Please preform bilateral renal us to evaluate for hydronephrosis given recent surgery and MATTHEW. COMPARISON: None. TECHNIQUE: Ultrasound evaluation of the kidneys and bladder. FINDINGS: The right kidney measures 10.7 x 5.2 x 6 .6 cm. The left kidney measures 11.8 x 6.2 x 4.9 cm. Renal cortical echogenicity is normal. No focal abnormality, calculi, or hydron ephrosis. The urinary bladder is not identified an d may be collapsed. IMPRESSION: Normal renal ultrasound. [facility]-[id number] Performing Organization Address City/State/Zipcode Phone Number [facility] [address] [place] [address] CBC with platelet and differential (02/03/2019 3:54 AM CDT)Only the most recent of2 resultswithin the time period is included. WBC 12.29 (H) 4.50 - 11.00 [facility] RBC 3.27 (L) 4.20 - 5.50 [facility] HGB 10.9 (L) 12.0 - 16.0 [facility] g/dL [facility] HCT 33.0 (L) 37.0 - 47.0 % [facility] MCV 100.9 (H) 82.0 - 100.0 [facility] MCH 33.3 27.0 - 34.[address] [facility] MCHC 33.0 31.0 - 37.0 [facility] g/dL [facility] RDW - SD 45.4 37.0 - 55.[address] [facility] MPV 10.5 8.8 - 13.[address] [facility] Platelet count 252 150 - 400 k/uL [facility] Nucleated RBC 0.00 /[address] [facility] Neutrophils 76.5 (H) 39.0 - 69.0 % [facility] Lymphocytes 14.7 (L) 25.0 - 45.0 % [facility] Monocytes 8.2 0.0 - 10.0 % [facility] Eosinophils 0.1 0.0 - 5.0 % [facility] Basophils 0.2 0.0 - 1.0 % [facility] Immature granulocytes 0.3Comment: 0.0 - 1.0 % [facility] "[facility] granulocytes" (promyelocytes , myelocytes, metamyelocytes ) Specimen Blood Performing Organization Address [facility] Phone Number [facility] DEPARTMENT OF PATHOLOGY AND [address] [place] [address] [place] [id number] POC glucose (02/02/2019 4:54 PM CDT) Pathologist Sig [facility] POC glucose 115 (H) 65 - 99 mg/dL [facility] Comment: [facility] Notified RN Meter ID: [id number] Sales And Marketing Agent: Angeles Voss Specimen Performing Organization Address [facility] Phone Number [facility] AND [address] [place] [address] [phone] [address] Phosphorus level (02/02/2019 5:26 AM CDT) Pathologist Sig nature Phosphorus 2.8 2.4 - 4.5 mg/dL [facility] L Specimen Plasma specimen Performing Organization Address [facility] Phone Number [facility] AND [address] [place] [address] [phone] [address] Magnesium level (02/02/2019 5:26 AM CDT) Pathologist Sig nature Magnesium 1.9 1.6 - 2.4 mg/dL [facility] L Specimen Plasma specimen Performing Organization Address City/State/Zipcode Phone Number [facility] DEPARTMENT OF PATHOLOGY AND [address] [place], [place] [phone] GENOMIC MEDICINE [facility] [address] [place] [address] Surgical pathology request (02/01/2019 3:37 PM CDT) [facility] PATHOLOGY AND GENOMIC MEDICINE Surgical pathology See link below [facility] DE[facility] OF report for PDF Lab PATHOLOGY AND Report GENOMIC MEDICINE Result status This is Final [facility] OF Report for PATHOLOGY AND [id number] GENOMIC MEDICINE Specimen Performing Organization Address City/[facility] Phone Number [facility] OF PATHOLOGY AND [address] [place] [phone] GENOMIC MEDICINE Airway (02/01/2019 8:59 AM CDT) Narrative Performed At Lisa Mota CRNA 02/01/2019 9:00 AM Airway Date/Time: 02/01/2019 7:46 AM Performed by: Lisa Mota CRNA Authorized by: Patrick Silvestre MD Location: OR Urgency: Elective Difficult Airway: No Resident/MACHINE BOOKKEEPER/AA: Lisa Mota CRNA Performed by: resident/ANDREW/AA Preoxygenated with 100% O2: Yes Mask Ventilation: Easy mask Final Airway Type: Endotracheal airway Final Endotracheal Airway: ETT Cuffed: Yes Technique Used: Direct laryngoscopy Devices/Methods Used in Placement: Int ubating stylet Insertion Site: Oral Blade Type: Joy Laryngoscope Blade/Videolaryngoscope Nia de Size: 2 ETT Size (mm): 7.0 Cuff at minimum occlusion pressure: Yes Measured from: Lips ETT to Lips (cm): 21 Placement Verified by: CO2 detection, di rect visualization and equal breath sounds Laryngoscopic view: Grade I - full vie w of glottis Rapid Sequence Induction (RSI): No Modified RSI: No Number of Attempts at Approach: 1 Eyes taped immediately after LOC. Atraumatic DL/Intub ation. No apparent change to oropharynx/dentition/lips Gram stain (01/18/2019 1:37 PM CDT) Gram stain result No WBC's or organisms seen. [facility] Comment: HOSPITAL Specimen Information Specimen Source: Urine Specimen Site: Clean catch Specimen Urine Performing Organization Address City/[facility]/Zipcode Phone Number [facility] OF [facility]OLOG[facility] AND [address] [place] [address] [phone] [address] Urinalysis screen and microscopy, with reflex to culture (01/18/2019 10:34 AM CDT) Specimen site Clean catch [facility] Color, UA Yellow [facility] Appearance, UA Clear [facility] Specific gravity, UA 1.019 1.001 - 1.[address] [facility] pH, UA 5.0 5.0 - 8.5 [facility] Protein, UA Negative Negative [facility] Glucose, UA Negative Negative [facility] Ketones, UA Negative Negative [facility] Bilirubin, UA Negative Negative [facility] Blood, UA Negative Negative [facility] Nitrite, UA Negative Negative [facility] Urobilinogen, UA <2.0 <2.[address] [facility] Leukocyte esterase, Trace (A) Negative [facility] Epithelial cells, UA 1 /HPF [facility] WBC, UA 1 0 - 4 /HPF [facility] RBC, UA 1 0 - 5 /HPF [facility] Bacteria, UA Few None seen [facility] Yeast, UA None seen [facility] Yeast with None seen [facility] pseudohyphae, UA HOSPITAL Specimen Urine Performing Organization Address [facility] Phone Number [facility]OLOGY AND [address] [place] [address] [phone] [address] Partial thromboplastin time, activated (01/18/2019 10:33 AM CDT) PTT 34.4 23.0 - 36.0 [facility] Comment: [facility] HOSPITAL PTT therapeutic range for unfractionated heparin is 61.0-112.0 seconds which corresponds to Anti-Xa 0.3-0.7 U/ml. Specimen Blood Performing Organization Address City/[facility]/Zipcode Phone Number [facility] OF PATHOLOGY AND [address] [place] [address] [phone] [address] Prothrombin time with INR (01/18/2019 10:33 AM CDT) Prothrombin time 13.1 11.5 - 14.5 [facility] INR 1.0 [place] Comment: [facility] International Normalized Ratio (INR) is a [facility] monitoring tool for patients who are stable on oral anticoagulant therapy. An INR of 2.0-3.0 is suggested for deep vein thrombosis/pulmonary embolism. Specimen Blood Performing Organization Address City/[facility]/[place] Phone Number [facility]OLOGY AND [address] [place] [address] [phone] [address] Type and screen (01/18/2019 10:33 AM CDT)Only the most recent of2 resultswithin the time period is included. Pathologist Sig nature ABO grouping O [facility] Rh type POS [facility] Antibody screen (gel) NEG [facility] Specimen Blood Performing Organization Address [facility] Phone Number [facility] OF PATHOLOGY AND [address] [place] [address] [phone] [address] Comprehensive metabolic panel (01/18/2019 10:33 AM CDT) Pathologist [facility] Sodium 141 135 - 148 [facility] mEq/L [facility] Potassium 4.1 3.5 - 5.0 [facility] mEq/L [facility] Chloride 103 98 - 112 [facility] mEq/L [facility] CO2 23 (L) 24 - 31 mEq/L [facility] Anion gap 15@ANIO 7 - 15 mEq/L [facility] BUN 14 8 - 23 mg/dL [facility] Creatinine 0.93 (H) 0.50 - 0.90 [facility] mg/dL [facility] Glucose 85 65 - 99 mg/dL [facility] Calcium 9.1 8.8 - 10.2 [facility] mg/dL [facility] Protein 7.6 6.3 - 8.3 [facility] Comment: g/dL HOSPITAL [place] 4.6-7.0 g/dL 1 week 4.4-7.6 g/dL 7 months-1year 5.1-7.3 g/dL 1-2 years 5.6-7.5 g/dL >3 years 6.0-8.0 g/dL 18-150 6.3-8.3 g/dL Albumin 3.9 3.5 - 5.0 [facility] g/dL HOSPITAL A/G ratio 1.1 0.7 - 3.[address] [facility] Alkaline phosphatase 69 35 - 104 U/L [facility] AST 17 10 - 35 U/L [facility] ALT 20 5 - 50 U/L [facility] Total bilirubin 0.3 0.0 - 1.2 [facility] mg/dL HOSPITAL Specimen Plasma specimen Performing Organization Address City/State/[place] Phone Number [facility] OF PATHOLOGY AND [address] [place], [place] [phone] [facility] [address] [place] [address] ECG Pre/Post Op (12/09/2018 2:57 PM CDT) Pathologist Sig nature Ventricular rate 81 [facility] Atrial rate 81 [facility] TN interval 154 [facility] QRSD interval 118 [facility] QT interval 396 [facility] QTC interval 460 [facility] P axis 1 61 [facility] QRS axis 1 66 [facility] T wave axis 12 [facility] EKG impression Normal sinus [facility] M[facility] rhythm-RSR' or QR pattern in V1 suggests right ventricular conduction delay-Nonspecific T wave abnormality-Abnormal ECG-No previous ECGs available-Electronicall y Signed By Higinio Johnston MD ([id number]) on 12/10/2018 9:43:20 PM Specimen Narrative Performed At This result has an attachment that is no t available. Performing Organization Address City/[facility]/[place] Phone Number [facility] [address] [place] [address] after 11/22/2018 Insurance Payer Benefit Plan / Subscriber ID Effective Dates Phone Addre ss Type Group MEDICARE MEDICARE PART A xxxxxxxxxxx 2018-Present [facility] [place] CIGNA CIGNA OPEN xxxxxxxxxxx 2011-Present HMO ACCESS/NETWORK Advance Directives For more information, please contact: [phone] Type Date Recorded Patient Car Top Bolter Explanati on Advance Directives, Living Will and Medical Power of Car Dropper
--- OUTSIDE RECORDS SUMMARY | 2019-11-23 17:56 | XMS REPORT | Clinical Summary ---
:1955 Author Organization [facility] Address [address] [place] [address] Care Team Providers Name Role Phone Nancy Primary Care Provider Unavailable Allergies Active Allergy Reactions Severity Noted Date Comments Sulfa (Sulfonamide Antibiotics) High 5 Medications Medication Sig Dispensed Refills Start Date End Date Status promethazine Take 25 mg by 0 Act ary (PHENERGAN) 25 MG mouth every 6 tablet (six) hours as needed for Nausea. buPROPion (WELLBUTRIN Take 150 mg by 0 Active SR) 150 MG 12 hr mouth daily . tablet fenofibrate Take 160 mg by 0 Act ary (TRIGLIDE,LOFIBRA) 160 mouth daily. MG tablet atenolol (TENORMIN) 25 Take 1 tablet 30 tablet 11 11/09/2018 MG tablet (25 mg total) by mouth daily. Active Problems Problem Noted Date Diverticulitis 11/06/2018 Chest pain -- with NORMAL CORONARY ARTERIES -- heart c ath -- 07/01/2014 06/29/2014 Heart palpitations -- metoprolol Rx 06/29/2014 Pure hypercholesterolemia 06/29/2014 Obesity 06/29/2014 Family History Medical History Relation Name Comments Heart disease Father Heart disease Mother Relation Name Status Comments Father Mother Social History Tobacco Use Types Packs/Day Years Used Date Never Smoker Smokeless Tobacco: Never Used Alcohol Use Drinks/Week oz/Week Comments Yes Sex Assigned at Date Recorded Not on file Job Start Date Occupation Industry Not on file Not on file Not on file Travel History Travel Start Travel End No recent travel history available. Last Filed Vital Signs Not on file Plan of Treatment Not on file Results Not on fileafter 11/22/2018 Insurance Payer Benefit Plan / Group Subscriber ID Type Phone A ddress MEDICARE MEDICARE PART A xxxxxxxxxxx Medicare CIGNA - MGD CARE CIGNA HMO/POS/OPEN ACCESS xxxxxxxxxxx HMO/POS Advance Directives For more information, please contact:[facility] [place], [place] [phone] Code Status Date Activated Date Inactivated Comments Full Code 11/06/2018 5:29 AM 11/09/2018 2:26 PM This code status was determined by: Patient Full Code 07/01/2014 10:35 AM 07/01/2014 6:38 PM This code status was determined by: Patient Full Code 07/01/2014 6:12 AM 07/01/2014 10:35 AM This code status was determined by: Patient
[2019-11-23 17:58] VITALS: BP 139/79; O2SAT 100
--- NOTE | 2019-11-24 07:17 | EKG ---
Test Date: 2019-11-23 Test Time: 15:32:31 [employer] Insurance Agent: CLARA MEASUREMENT RESULTS: Intervals: Rate: 77 MD: 130 QRSD: 112 QT: 418 QTc: 473 [place]: P: 55 MD: 130 QRS: 33 T: -11 INTERPRETIVE STATEMENTS: Normal sinus rhythm Incomplete right bundle branch block ST & T wave abnormality, consider inferior ischemia Prolonged QT Abnormal ECG Compared to ECG 06/14/2014 07:00:39 Incomplete right bundle-branch block now present ST (T wave) deviation now present Possible ischemia now present Prolonged QT interval now present Sinus bradycardia no longer present Electronically Signed On 11-24-19 07:15:40 CDT by Dawood Diggs
== END 2019-11-23 17:28 | disposition home or self-care (01) ==
LOC: ER 14:28
DX: B34.9 Viral infection, unspecified (principal); Z20.828 Contact with and (suspected) exposure to other viral communicable diseases; I10 Essential (primary) hypertension; Z88.7 Allergy status to serum and vaccine
CPT/HCPCS: 93005; 85025; 80048; 36415; 83735; 85610; 80076; 84484; 83880; 71045; 99285; U0001